=== PATIENT | female | born 1990 | race Caucasian/White ===

== ENCOUNTER 2022-07-26 11:06 | Emergency (ER) | payer OTHER ==
[~2022-07-26] VITALS: Ht 144.8 cm; Wt 81.4 kg
[2022-07-26 11:13] VITALS: BP 120/73
[2022-07-26] MEDS ORDERED: IBUP-2030 MT (12:20)
== END 2022-07-26 12:33 | disposition home or self-care (01) ==
LOC: ER 11:22
DX: S86.911A Strain of unspecified muscle(s) and tendon(s) at lower leg level, right leg, initial encounter (principal); Z87.440 Personal history of urinary (tract) infections; X58.XXXA Exposure to other specified factors, initial encounter; Y93.89 Activity, other specified; Y92.89 Other specified places as the place of occurrence of the external cause; Y99.8 Other external cause status
CPT/HCPCS: 73590; 99283